=== PATIENT | female | born 1980 | race American Indian/Alaskan Native ===

== ENCOUNTER 2018-11-13 12:40 | Emergency (ER) | payer OTHER ==
--- NOTE | 2018-11-13 12:49 | Emergency Department Report ---
Blank Doc - Documentation Documentation: This is a 38-year-old female that presents with left thumb pain . This initial assessment/diagnostic orders/clinical plan/treatment(s) is/are subject to change based on patient's health status, clinical progression and re- assessment by fellow clinical providers in the ED. Further treatment and workup at subsequent clinical providers discretion. Patient/guardians urged not to elope from the ED as their condition may be serious if not clinically assessed and managed. Initial orders include: 1- Patient sent to [facility] for further evaluation and treatment. 2- xray
[2018-11-13 12:52] VITALS: BP 121/78
--- NOTE | 2018-11-13 13:21 | XRay Report ---
HISTORY: pain COMPARISON: None. TECHNIQUE: 2 FINDINGS: Bones: No fracture or dislocation. Joint spaces: Maintained. Soft tissues: No significant abnormality. Additional findings: None. IMPRESSION: 1. No significant abnormality. Signer Name: Gordon Bran MD Signed: 11/13/2018 1:16 PM Workstation Name: [id number]
--- NOTE | 2018-11-13 14:45 | Emergency Department Report ---
ED Upper Extremity Inj HPI - General Chief Complaint: Extremity Injury, Upper Stated Complaint: HIT THUMB ON DASHBOARD Time Seen by Provider: 11/13/18 12:49 Source: patient Mode of arrival: Ambulatory Limitations: No Limitations - History of Present Illness Initial Comments: This is a 38-year-old female that presents with left thumb pain . She reports that she hit her thumb up against her dashboard and her car yesterday. He has taken nothing for pain. MD Complaint: Injury to:: left, finger Onset/Timin -: days(s) Other Extremity Injury: Fingers: Left (thumb) Other Injuries: none Place: home Severity scale (0 -10): 7 Context: direct blow Associated Symptoms: denies other symptoms - Related Data Allergies Allergy/AdvReac Type Severity Reaction Status Date / Time No Known Allergies Allergy Unverified 11/13/18 12:42 ED Review of Systems ROS: Stated complaint: HIT THUMB ON DASHBOARD Other details as noted in HPI Comment: All other systems reviewed and negative ED Past Medical Hx - Past Medical History Previous Medical History?: No - Surgical History Past Surgical History?: Yes Additional Surgical History: C section - Social History Smoking Status: Never Smoker Substance Use Type: None ED Physical Exam - General Limitations: No Limitations General appearance: alert, in no apparent distress - Head Head exam: Present: atraumatic, normocephalic - Eye Eye exam: Present: normal appearance - ENT ENT exam: Present: mucous membranes moist - Expanded Upper Extremity Exam Left General: Present: normal inspection Shoulder Exam: Present: normal inspection Upper Arm exam: Present: normal inspection Elbow exam: Present: normal inspection Forearm Wrist exam: Present: normal inspection Hand Wrist exam: Present: tenderness (left thumb) Neuro motor exam: Present: wrist extension intact, thumb opposition intact, thumb IP flexion intact, thumb adduction intact, fingers 2-5 abduction intact Vascular: Present: normal capillary refill ED Course Vital Signs 11/13/18 12:49 Temperature 98.6 F Pulse Rate 89 Respiratory 18 Rate Blood Pressure 121/78 O2 Sat by Pulse 100 Oximetry ED Medical Decision Making - Radiology Data Radiology results: report reviewed Patient: MALIHA SMITH MR#: [id number] : 1980 Acct:[id number] Age/Sex: 38 / F ADM Date: 11/13/18 Loc: ED Attending Dr: Ordering Physician: TOSHIA PAVON NP Date of Service: 11/13/18 Procedure(s): XR finger(s) 2+V LT Accession Number(s): [id number] cc: TOSHIA PAVON NP Fluoro Time In Minutes: HISTORY: pain COMPARISON: None. TECHNIQUE: 2 FINDINGS: Bones: No fracture or dislocation. Joint spaces: Maintained. Soft tissues: No significant abnormality. Additional findings: None. IMPRESSION: 1. No significant abnormality. Signer Name: Gordon Bran MD Signed: 11/13/2018 1:16 PM Workstation Name: [id number] Transcribed By: MYRA Dictated By: Gordon Bran MD Electronically Authenticated By: Gordon Bran MD Signed Date/Time: 11/13/18 1316 DD/ 1315 TD/TT: - Medical Decision Making 38-year-old female comes in for left thumb pain after hitting on a dashboard yesterday. X-rays of hand is negative for any abnormalities. Patient to be discharged home to take [id number] ibuprofen or Tylenol. Critical care attestation.: If time is entered above; I have spent that time in minutes in the direct care of this critically ill patient, excluding procedure time. ED Disposition Clinical Impression: Contusion of finger of left hand Qualifiers: Encounter type: initial encounter Finger: thumb Damage to nail status: without damage Qualified Code(s): S60.012A - Contusion of left thumb without damage to nail, initial encounter Disposition: DC-01 TO HOME OR SELFCARE Is pt being admited?: No Does the pt Need Aspirin: No Condition: Stable Instructions: Arthralgia (ED) Additional Instructions: You can take [id number] Tylenol and/or Motrin for pain control. X-rays are negative for any acute abnormalities/fracture through dislocations.
== END 2018-11-13 15:23 | disposition home or self-care (01) ==
LOC: ED 12:40
DX: S60.012A Contusion of left thumb without damage to nail, initial encounter (principal); Z98.890 Other specified postprocedural states; W22.8XXA Striking against or struck by other objects, initial encounter; Y93.89 Activity, other specified; Y92.099 Unspecified place in other non-institutional residence as the place of occurrence of the external cause; Y99.8 Other external cause status
CPT/HCPCS: 99283